=== PATIENT | male | born 1990 | race Caucasian/White ===

== ENCOUNTER 2025-05-25 18:27 | Emergency (ER) | payer SELFPAY ==
[~2025-05-25] VITALS: Ht 170.2 cm; Wt 102.0 kg
[2025-05-25 18:45] VITALS: O2SAT 100
[2025-05-25] MEDS ORDERED: METH-653 MT (20:03)
[2025-05-25] MEDS ORDERED: LIDO700A30 TP (20:03)
[2025-05-25] MEDS ORDERED: IBUP-1455 MT (20:03)
[2025-05-25 20:34] VITALS: BP 121/87; PULSE 100; RESP 18; TEMP 36.9; O2SAT 100
== END 2025-05-25 20:38 | disposition home or self-care (01) ==
LOC: ER 18:27
DX: S22.39XA Fracture of one rib, unspecified side, initial encounter for closed fracture (principal); E11.9 Type 2 diabetes mellitus without complications; V87.8XXA Person injured in other specified noncollision transport accidents involving motor vehicle (traffic), initial encounter; Y93.89 Activity, other specified; Y92.89 Other specified places as the place of occurrence of the external cause; Y99.8 Other external cause status
CPT/HCPCS: 71101; 99283